=== PATIENT | male | born 1945 | race Caucasian/White ===

== ENCOUNTER 2020-06-26 13:03 | Observation (INO) ==
[2020-06-26] MEDS ORDERED: Piperacillin/Tazobactam 3.375 GM in Water for inj. (sterile) 20 ML IVP ONE (13:41)
[2020-06-26] MEDS ORDERED: MetroNIDAZOLE 500 MG/100 ML 500 MG/100 ML BAG IVPB ONE (13:41)
[2020-06-26] MEDS ORDERED: 0.9 % Sodium Chloride 500 ML IVC ONE (13:42)
[2020-06-26 13:52] LABS: Bilirubin,Urine Negative (Negative); Blood,Urine Negative (Negative); Clarity,Urine Clear (Clear); Color,Urine Light-Yellow (Yellow); Glucose,Urine (UA) Normal (Normal); Ketones,Urine Negative (Negative); Leukocyte Esterase,Urine Negative (Negative); Mucus,Urine Few per lpf (None-Few); Nitrite,Urine Negative (Negative); Protein,Urine 30 mg/dL (Neg-Trace); RBC,Urine 0-3 per hpf (0-3); Specific Gravity,Urine 1.019 (1.010-1.025); Squamous Epithelial Cell,Urine Few per hpf (None-Few); Urobilinogen,Urine Normal (Normal); WBC,Urine 0-3 per hpf (0-3)
[2020-06-26] MEDS ORDERED: Ondansetron 4 MG/2 ML VIAL IVP PRN (15:17)
[2020-06-26] MEDS ORDERED: Naloxone 0.4 MG/ML INJ IVP PRN (15:17)
[2020-06-26 16:15] LABS: Basophils # 0.1 K/mcL (0.0-0.2); Basophils % 0.8 %; Eosinophils # 0.1 K/mcL (0.0-0.6); Eosinophils % 1.3 %; Hematocrit 43.8 % (37.5-50.1); Hemoglobin 14.6 g/dL (12.9-16.9); Immature Granulocytes % 0.3 % (0-4); Lymphocytes # 1.2 K/mcL (0.6-4.6); Lymphocytes % 20.1 %; Mean Corpuscular HGB Conc 33.3 g/dL (31.6-35.5); Mean Corpuscular Hemoglobin 29.6 pg (28.0-33.3); Mean Corpuscular Volume 88.7 fL (83.0-100.0); Mean Platelet Volume 10.8 fL (9.4-12.4); Monocytes # 0.5 K/mcL (0.0-1.3); Neutrophils # 4.1 K/mcL (1.6-8.9); Platelet Count 153 K/mcL (140-400); Red Blood Count 4.94 M/mcL (4.19-5.50); Red Cell Distribution Width 13.5 % (11.5-14.5); Segmented Neutrophils % 68.5 %
[2020-06-26] MEDS: 0.9 % Sodium Chloride 1,000 ML IVC SCH (16:22)
[2020-06-26] MEDS: carvediloL 6.25 MG TABLET PO SCH (16:23)
[2020-06-26 16:28] LABS: Alanine Aminotransferase 17 Units/L (7-52); Albumin 4.7 g/dL (3.5-5.7); Albumin/Globulin Ratio 1.7 (1.1-2.2); Alkaline Phosphatase 112 Units/L (34-104); Aspartate Amino Transferase 18 Units/L (13-39); BUN/Creatinine Ratio 10 (6-26); Bilirubin,Total 0.8 mg/dL (0.3-1.0); Blood Urea Nitrogen 14 mg/dL (8-23); Calcium 9.5 mg/dL (8.6-10.3); Carbon Dioxide 22 mEq/L (23-29); Chloride 107 mEq/L (98-107); Globulin 2.8 g/dL (2.4-3.5); Glucose 102 mg/dL (70-105); Osmolality,Calculated 287 (280-300); Potassium 3.5 mEq/L (3.5-5.1); Sodium 138 mEq/L (136-145); Total Protein 7.5 g/dL (6.4-8.9); eGFR For African Americans > 60 (> 60); eGFR For Non-African Americans 52 (> 60)
[2020-06-26] MEDS: Piperacillin/Tazobactam 3.375 GM in 0.9 % Sodium Chloride Mini Bag 100 ML IVPB SCH (20:13)
[2020-06-27 02:29] LABS: Hematocrit 37.7 % (37.5-50.1); Mean Corpuscular HGB Conc 33.2 g/dL (31.6-35.5); Mean Corpuscular Hemoglobin 29.8 pg (28.0-33.3); Mean Platelet Volume 11.2 fL (9.4-12.4); Platelet Count 154 K/mcL (140-400); Red Blood Count 4.19 M/mcL (4.19-5.50); Red Cell Distribution Width 13.4 % (11.5-14.5); White Blood Count 6.2 K/mcL (4.3-11.1)
[2020-06-27 02:34] LABS: Hemoglobin 12.5 g/dL (12.9-16.9)
[2020-06-27 02:35] LABS: Albumin 3.9 g/dL (3.5-5.7); Albumin/Globulin Ratio 1.7 (1.1-2.2); Bilirubin,Total 0.5 mg/dL (0.3-1.0); Calcium 8.4 mg/dL (8.6-10.3); Globulin 2.3 g/dL (2.4-3.5); Potassium 3.4 mEq/L (3.5-5.1); Total Protein 6.2 g/dL (6.4-8.9)
[2020-06-27] MEDS: 0.9 % Sodium Chloride 1,000 ML IVC SCH (03:42)
[2020-06-27] MEDS: Piperacillin/Tazobactam 3.375 GM in 0.9 % Sodium Chloride Mini Bag 100 ML IVPB SCH (03:43)
[2020-06-27 07:12] VITALS: BP 152/70
[2020-06-27] MEDS: carvediloL 6.25 MG TABLET PO SCH (08:39)
[2020-06-27] MEDS ORDERED: Cholecalciferol (D-3) 1,000 UNIT (25MCG) TABLET PO SCH (09:00)
[2020-06-27] MEDS ORDERED: amLODIPine 5 MG TABLET PO SCH (09:00)
[2020-06-27] MEDS ORDERED: Thiamine (B-1) 100 MG TABLET PO SCH (09:00)
[2020-06-27] MEDS ORDERED: Magnesium Oxide 400 MG TABLET PO SCH (09:00)
[2020-06-27] MEDS ORDERED: Aspirin Enteric Coated 81 MG Tablet PO SCH (09:00)
== END 2020-06-27 10:50 | disposition home or self-care (01) ==
LOC: SUATTDRO → 3ANU 13:03 → EMEROOARM 13:03 → SUATTDRO 14:13 → 3ANU 15:05
PROVIDERS: ADMIT Family Medicine; ATTEND Student in an Organized Health Care Education/Training Program

== ENCOUNTER 2021-12-11 15:56 | Inpatient (IN) ==
[2021-12-11] MEDS ORDERED: Ipratropium/Albuterol Neb 3 ML IH ONE (16:06)
[2021-12-11] MEDS ORDERED: 0.9 % Sodium Chloride 1,000 ML IVC ONE (16:06)
[2021-12-11] MEDS ORDERED: Albuterol 2.5 MG/3 ML NEBULIZER IH ONE (16:06)
[2021-12-11 16:59] LABS: Basophils % 0.1 %; Immature Granulocytes % 0.4 % (0-4)
[2021-12-11 17:01] LABS: Hematocrit 39.9 % (37.5-50.1); Hemoglobin 13.4 g/dL (12.9-16.9); Immature Platelets 8.8 % (1.1-6.1); Lymphocytes # 0.6 K/mcL (0.6-4.6); Mean Corpuscular HGB Conc 33.6 g/dL (31.6-35.5); Mean Corpuscular Volume 89.5 fL (83.0-100.0); Mean Platelet Volume 11.9 fL (9.4-12.4); Monocytes # 0.4 K/mcL (0.0-1.3); Monocytes % 5.6 %; Neutrophils # 6.9 K/mcL (1.6-8.9); Platelet Count 121 K/mcL (140-400); Red Blood Count 4.46 M/mcL (4.19-5.50); Red Cell Distribution Width 13.9 % (11.5-14.5); Segmented Neutrophils % 86.9 %; White Blood Count 7.9 K/mcL (4.3-11.1)
[2021-12-11 17:08] LABS: Albumin 3.6 g/dL (3.5-5.7); Albumin/Globulin Ratio 1.4 (1.1-2.2); Bilirubin,Direct 0.1 mg/dL (0.0-0.2); Bilirubin,Indirect 0.4 mg/dL (0.0-1.0); Bilirubin,Total 0.5 mg/dL (0.3-1.0); Calcium 8.8 mg/dL (8.6-10.3); Globulin 2.5 g/dL (2.4-3.5); Potassium 3.9 mEq/L (3.5-5.1); Total Protein 6.1 g/dL (6.4-8.9); Troponin I 0.05 ng/mL (< 0.04)
[2021-12-11 17:17] LABS: VBG HCO3 23 mEq/L (21-27); VBG PCO2 34 mmHg (41-51); VBG PH 7.45 pH Units (7.32-7.42); VBG PO2 48 mmHg (25-50)
[2021-12-11] MEDS ORDERED: Naloxone 0.4 MG/ML INJ IVP PRN (17:55)
[2021-12-11] MEDS ORDERED: Mag Hydrox/Al Hydrox/Simeth 30 ML UDC PO PRN (17:55)
[2021-12-11] MEDS ORDERED: Ondansetron ODT 4 MG TAB.RAPDIS SL PRN (17:55)
[2021-12-11 18:22] LABS: Influenza A PCR Negative (Negative); Influenza B PCR Negative (Negative); Resp. Syncytial Virus PCR Negative (Negative)
[2021-12-11 18:28] LABS: SARS-CoV-2 by PCR (In House) Positive (Negative)
[2021-12-11] MEDS ORDERED: Remdesivir 200 MG in 0.9 % Sodium Chloride 100 ML IVPB ONE (20:00)
[2021-12-11] MEDS: Ipratropium 1 PUFF INHALER IH SCH ×2 (20:39→23:23)
[2021-12-11] MEDS: Furosemide 20 MG/2 ML VIAL IVP SCH (22:55)
[2021-12-11 22:58] LABS: Fibrinogen 435 mg/dL (169-393)
[2021-12-11 23:01] LABS: D-Dimer 626 ng/mLFEU (0-500)
[2021-12-12] MEDS: Ipratropium 1 PUFF INHALER IH SCH ×6 (03:31→23:27)
[2021-12-12] MEDS: *HR* Enoxaparin 40 MG/0.4 ML SYRINGE SQ SCH (05:24)
[2021-12-12 06:01] LABS: Basophils % 0.1 %; Hemoglobin 12.9 g/dL (12.9-16.9)
[2021-12-12 06:03] LABS: Hematocrit 37.8 % (37.5-50.1); Immature Granulocytes % 0.4 % (0-4); Immature Platelets 8.7 % (1.1-6.1); Lymphocytes # 0.4 K/mcL (0.6-4.6); Lymphocytes % 5.8 %; Mean Corpuscular HGB Conc 34.1 g/dL (31.6-35.5); Mean Corpuscular Hemoglobin 30.4 pg (28.0-33.3); Mean Corpuscular Volume 88.9 fL (83.0-100.0); Mean Platelet Volume 11.8 fL (9.4-12.4); Monocytes # 0.5 K/mcL (0.0-1.3); Monocytes % 6.3 %; Neutrophils # 6.2 K/mcL (1.6-8.9); Platelet Count 120 K/mcL (140-400); Red Blood Count 4.25 M/mcL (4.19-5.50); Red Cell Distribution Width 13.9 % (11.5-14.5); Segmented Neutrophils % 87.4 %; White Blood Count 7.1 K/mcL (4.3-11.1)
[2021-12-12 06:10] LABS: Fibrinogen 426 mg/dL (169-393)
[2021-12-12 06:12] LABS: D-Dimer 849 ng/mLFEU (0-500)
[2021-12-12 06:21] LABS: Albumin 3.2 g/dL (3.5-5.7); Albumin/Globulin Ratio 1.4 (1.1-2.2); Bilirubin,Direct 0.1 mg/dL (0.0-0.2); Bilirubin,Indirect 0.3 mg/dL (0.0-1.0); Bilirubin,Total 0.4 mg/dL (0.3-1.0); Calcium 8.1 mg/dL (8.6-10.3); Globulin 2.3 g/dL (2.4-3.5); Potassium 3.6 mEq/L (3.5-5.1); Total Protein 5.5 g/dL (6.4-8.9); Troponin I 0.03 ng/mL (< 0.04)
[2021-12-12] MEDS: Furosemide 20 MG/2 ML VIAL IVP SCH (09:38)
[2021-12-12] MEDS ORDERED: Perflutren Lipid Microsphere 1.3 ML in 0.9 % Sodium Chloride 8.7 ML IVP PRN (15:13)
[2021-12-12] MEDS: Remdesivir 100 MG in 0.9 % Sodium Chloride 100 ML IVPB SCH (22:02)
[2021-12-13] MEDS: Melatonin 3 MG TABLET PO PRN ×2 (00:40→20:35)
[2021-12-13] MEDS: Ipratropium 1 PUFF INHALER IH SCH ×5 (03:43→20:39)
[2021-12-13] MEDS: *HR* Enoxaparin 40 MG/0.4 ML SYRINGE SQ SCH (04:55)
[2021-12-13 04:58] LABS: Monocytes % 4.3 %
[2021-12-13 05:00] LABS: Basophils % 0.3 %; Hematocrit 37.9 % (37.5-50.1); Hemoglobin 12.7 g/dL (12.9-16.9); Immature Granulocytes % 0.6 % (0-4); Immature Platelets 8.9 % (1.1-6.1); Lymphocytes # 0.6 K/mcL (0.6-4.6); Lymphocytes % 7.5 %; Mean Corpuscular HGB Conc 33.5 g/dL (31.6-35.5); Mean Corpuscular Hemoglobin 30.5 pg (28.0-33.3); Mean Corpuscular Volume 90.9 fL (83.0-100.0); Mean Platelet Volume 11.6 fL (9.4-12.4); Monocytes # 0.3 K/mcL (0.0-1.3); Platelet Count 133 K/mcL (140-400); Red Blood Count 4.17 M/mcL (4.19-5.50); Segmented Neutrophils % 87.3 %
[2021-12-13 05:17] LABS: Albumin 3.2 g/dL (3.5-5.7); Albumin/Globulin Ratio 1.5 (1.1-2.2); Bilirubin,Direct 0.1 mg/dL (0.0-0.2); Bilirubin,Indirect 0.4 mg/dL (0.0-1.0); Bilirubin,Total 0.5 mg/dL (0.3-1.0); Calcium 7.7 mg/dL (8.6-10.3); Globulin 2.2 g/dL (2.4-3.5); Potassium 3.7 mEq/L (3.5-5.1); Total Protein 5.4 g/dL (6.4-8.9)
[2021-12-13] MEDS: Dexamethasone Sodium Phos/PF 10 MG/ML VIAL IVP SCH (08:54)
[2021-12-13] MEDS: Furosemide 20 MG/2 ML VIAL IVP SCH (08:54)
[2021-12-13] MEDS: Remdesivir 100 MG in 0.9 % Sodium Chloride 100 ML IVPB SCH (20:36)
[2021-12-14] MEDS: Ipratropium 1 PUFF INHALER IH SCH ×7 (00:09→23:52)
[2021-12-14 02:51] LABS: Basophils % 0.1 %; Hematocrit 37.4 % (37.5-50.1); Hemoglobin 12.7 g/dL (12.9-16.9); Immature Granulocytes % 0.8 % (0-4); Lymphocytes # 0.5 K/mcL (0.6-4.6); Lymphocytes % 4.4 %; Mean Corpuscular Hemoglobin 30.3 pg (28.0-33.3); Mean Corpuscular Volume 89.3 fL (83.0-100.0); Mean Platelet Volume 11.6 fL (9.4-12.4); Monocytes # 0.3 K/mcL (0.0-1.3); Monocytes % 3.1 %; Neutrophils # 10.1 K/mcL (1.6-8.9); Platelet Count 171 K/mcL (140-400); Red Blood Count 4.19 M/mcL (4.19-5.50); Red Cell Distribution Width 13.9 % (11.5-14.5); Segmented Neutrophils % 91.6 %
[2021-12-14 03:08] LABS: Fibrinogen 327 mg/dL (169-393)
[2021-12-14 03:10] LABS: D-Dimer 1463 ng/mLFEU (0-500)
[2021-12-14 03:24] LABS: Alanine Aminotransferase 32 Units/L (7-52); Albumin 3.1 g/dL (3.5-5.7); Albumin/Globulin Ratio 1.4 (1.1-2.2); Alkaline Phosphatase 69 Units/L (34-104); Aspartate Amino Transferase 36 Units/L (13-39); BUN/Creatinine Ratio 26 (6-26); Bilirubin,Direct 0.2 mg/dL (0.0-0.2); Bilirubin,Indirect 0.3 mg/dL (0.0-1.0); Bilirubin,Total 0.5 mg/dL (0.3-1.0); Blood Urea Nitrogen 35 mg/dL (8-23); C-Reactive Protein 50 mg/L (Less than 10); Calcium 7.6 mg/dL (8.6-10.3); Carbon Dioxide 22 mEq/L (23-29); Chloride 107 mEq/L (98-107); Globulin 2.2 g/dL (2.4-3.5); Glucose 152 mg/dL (70-105); Lactate Dehydrogenase 525 Units/L (140-271); Osmolality,Calculated 289 (280-300); Potassium 3.6 mEq/L (3.5-5.1); Sodium 134 mEq/L (136-145); Total Protein 5.3 g/dL (6.4-8.9); eGFR For African Americans > 60 (> 60); eGFR For Non-African Americans 52 (> 60)
[2021-12-14 03:32] LABS: Ferritin 754 ng/mL (20-250); Platelet Estimate Normal (Normal); Reactive Lymphocytes Present (Not Present)
[2021-12-14] MEDS: *HR* Enoxaparin 40 MG/0.4 ML SYRINGE SQ SCH (04:53)
[2021-12-14] MEDS: Magnesium Oxide 400 MG TABLET PO SCH (09:08)
[2021-12-14] MEDS: Furosemide 20 MG/2 ML VIAL IVP SCH (09:09)
[2021-12-14] MEDS: Cholecalciferol (D-3) 1,000 UNIT (25MCG) TABLET PO SCH (09:09)
[2021-12-14] MEDS: amLODIPine 5 MG TABLET PO SCH (09:09)
[2021-12-14] MEDS: Aspirin Enteric Coated 81 MG Tablet PO SCH (09:09)
[2021-12-14] MEDS: Dexamethasone Sodium Phos/PF 10 MG/ML VIAL IVP SCH (09:10)
[2021-12-14] MEDS: Remdesivir 100 MG in 0.9 % Sodium Chloride 100 ML IVPB SCH (19:43)
[2021-12-14] MEDS: Melatonin 3 MG TABLET PO PRN (20:45)
[2021-12-15 03:22] LABS: Albumin 3.1 g/dL (3.5-5.7); Albumin/Globulin Ratio 1.5 (1.1-2.2); Bilirubin,Direct 0.2 mg/dL (0.0-0.2); Bilirubin,Indirect 0.4 mg/dL (0.0-1.0); Bilirubin,Total 0.6 mg/dL (0.3-1.0); Globulin 2.1 g/dL (2.4-3.5); Total Protein 5.2 g/dL (6.4-8.9)
[2021-12-15] MEDS: Ipratropium 1 PUFF INHALER IH SCH ×6 (03:58→23:51)
[2021-12-15] MEDS: *HR* Enoxaparin 40 MG/0.4 ML SYRINGE SQ SCH (05:10)
[2021-12-15] MEDS: Aspirin Enteric Coated 81 MG Tablet PO SCH (07:40)
[2021-12-15] MEDS: amLODIPine 5 MG TABLET PO SCH (07:40)
[2021-12-15] MEDS: Cholecalciferol (D-3) 1,000 UNIT (25MCG) TABLET PO SCH (07:41)
[2021-12-15] MEDS: Magnesium Oxide 400 MG TABLET PO SCH (07:41)
[2021-12-15] MEDS: Dexamethasone Sodium Phos/PF 10 MG/ML VIAL IVP SCH (12:57)
[2021-12-15] MEDS: Furosemide 20 MG/2 ML VIAL IVP SCH (12:57)
[2021-12-15] MEDS ORDERED: *HR* LORazepam 0.5 MG TABLET PO ONE (20:16)
[2021-12-15] MEDS: Remdesivir 100 MG in 0.9 % Sodium Chloride 100 ML IVPB SCH (20:39)
[2021-12-15] MEDS: Melatonin 3 MG TABLET PO PRN (20:40)
[2021-12-16 02:17] LABS: BUN/Creatinine Ratio 27 (6-26); Blood Urea Nitrogen 36 mg/dL (8-23); Calcium 7.4 mg/dL (8.6-10.3); Carbon Dioxide 25 mEq/L (23-29); Chloride 107 mEq/L (98-107); Glucose 159 mg/dL (70-105); Magnesium 2.5 mg/dL (1.6-2.6); Osmolality,Calculated 296 (280-300); Phosphorous 3.7 mg/dL (2.7-4.5); Potassium 3.6 mEq/L (3.5-5.1); Sodium 137 mEq/L (136-145); eGFR For African Americans > 60 (> 60); eGFR For Non-African Americans 53 (> 60)
[2021-12-16 02:30] LABS: Albumin 3.1 g/dL (3.5-5.7); Albumin/Globulin Ratio 1.6 (1.1-2.2); Bilirubin,Direct 0.2 mg/dL (0.0-0.2); Bilirubin,Indirect 0.5 mg/dL (0.0-1.0); Bilirubin,Total 0.7 mg/dL (0.3-1.0); Globulin 1.9 g/dL (2.4-3.5)
[2021-12-16 03:00] LABS: Fibrinogen 206 mg/dL (169-393)
[2021-12-16 03:11] LABS: D-Dimer 1727 ng/mLFEU (0-500)
[2021-12-16] MEDS: Ipratropium 1 PUFF INHALER IH SCH ×6 (03:51→23:36)
[2021-12-16] MEDS: *HR* Enoxaparin 40 MG/0.4 ML SYRINGE SQ SCH (06:15)
[2021-12-16] MEDS: Dexamethasone Sodium Phos/PF 10 MG/ML VIAL IVP SCH (09:14)
[2021-12-16] MEDS: Cholecalciferol (D-3) 1,000 UNIT (25MCG) TABLET PO SCH (09:14)
[2021-12-16] MEDS: Magnesium Oxide 400 MG TABLET PO SCH (09:14)
[2021-12-16] MEDS: Aspirin Enteric Coated 81 MG Tablet PO SCH (09:14)
[2021-12-16] MEDS: amLODIPine 5 MG TABLET PO SCH (09:14)
[2021-12-16] MEDS: Furosemide 20 MG/2 ML VIAL IVP SCH (09:15)
[2021-12-16] MEDS: Melatonin 3 MG TABLET PO PRN (21:21)
[2021-12-16] MEDS: Saline Nasal Spray 44 ML BOTTLE NS PRN (23:51)
[2021-12-17] MEDS: Ipratropium 1 PUFF INHALER IH SCH ×6 (03:46→20:58)
[2021-12-17] MEDS: *HR* Enoxaparin 40 MG/0.4 ML SYRINGE SQ SCH (05:29)
[2021-12-17] MEDS: Saline Nasal Spray 44 ML BOTTLE NS PRN (05:30)
[2021-12-17 07:21] LABS: Basophils % 0.1 %; Hematocrit 37.6 % (37.5-50.1); Hemoglobin 12.8 g/dL (12.9-16.9); Immature Granulocytes % 0.7 % (0-4); Lymphocytes # 0.5 K/mcL (0.6-4.6); Lymphocytes % 6.4 %; Mean Corpuscular Hemoglobin 30.3 pg (28.0-33.3); Mean Corpuscular Volume 88.9 fL (83.0-100.0); Mean Platelet Volume 11.7 fL (9.4-12.4); Monocytes # 0.2 K/mcL (0.0-1.3); Monocytes % 2.5 %; Neutrophils # 6.9 K/mcL (1.6-8.9); Platelet Count 172 K/mcL (140-400); Red Blood Count 4.23 M/mcL (4.19-5.50); Red Cell Distribution Width 13.4 % (11.5-14.5); Segmented Neutrophils % 90.3 %; White Blood Count 7.6 K/mcL (4.3-11.1)
[2021-12-17 07:42] LABS: BUN/Creatinine Ratio 29 (6-26); Blood Urea Nitrogen 36 mg/dL (8-23); Calcium 7.5 mg/dL (8.6-10.3); Carbon Dioxide 26 mEq/L (23-29); Chloride 104 mEq/L (98-107); Glucose 120 mg/dL (70-105); Magnesium 2.6 mg/dL (1.6-2.6); Osmolality,Calculated 296 (280-300); Phosphorous 2.7 mg/dL (2.7-4.5); Potassium 3.4 mEq/L (3.5-5.1); Sodium 138 mEq/L (136-145); eGFR For African Americans > 60 (> 60); eGFR For Non-African Americans 57 (> 60)
[2021-12-17] MEDS: Aspirin Enteric Coated 81 MG Tablet PO SCH (08:17)
[2021-12-17] MEDS: Magnesium Oxide 400 MG TABLET PO SCH (08:18)
[2021-12-17] MEDS: Furosemide 20 MG/2 ML VIAL IVP SCH (08:18)
[2021-12-17] MEDS: Cholecalciferol (D-3) 1,000 UNIT (25MCG) TABLET PO SCH (08:19)
[2021-12-17] MEDS: amLODIPine 5 MG TABLET PO SCH (08:19)
[2021-12-17] MEDS: Dexamethasone Sodium Phos/PF 10 MG/ML VIAL IVP SCH (08:19)
[2021-12-17] MEDS: Melatonin 3 MG TABLET PO PRN (20:57)
[2021-12-18 01:26] LABS: BUN/Creatinine Ratio 32 (6-26); Blood Urea Nitrogen 40 mg/dL (8-23); Calcium 7.7 mg/dL (8.6-10.3); Carbon Dioxide 25 mEq/L (23-29); Chloride 103 mEq/L (98-107); Glucose 137 mg/dL (70-105); Magnesium 2.7 mg/dL (1.6-2.6); Osmolality,Calculated 298 (280-300); Potassium 4.1 mEq/L (3.5-5.1); Sodium 138 mEq/L (136-145); eGFR For African Americans > 60 (> 60); eGFR For Non-African Americans 56 (> 60)
[2021-12-18] MEDS: Ipratropium 1 PUFF INHALER IH SCH ×6 (03:52→23:29)
[2021-12-18] MEDS: *HR* Enoxaparin 40 MG/0.4 ML SYRINGE SQ SCH (06:14)
[2021-12-18] MEDS: Dexamethasone Sodium Phos/PF 10 MG/ML VIAL IVP SCH (08:53)
[2021-12-18] MEDS: Furosemide 20 MG/2 ML VIAL IVP SCH (08:53)
[2021-12-18] MEDS: Cholecalciferol (D-3) 1,000 UNIT (25MCG) TABLET PO SCH (08:53)
[2021-12-18] MEDS: Aspirin Enteric Coated 81 MG Tablet PO SCH (08:54)
[2021-12-18] MEDS: amLODIPine 5 MG TABLET PO SCH (08:54)
[2021-12-18] MEDS: Magnesium Oxide 400 MG TABLET PO SCH (08:54)
[2021-12-18] MEDS ORDERED: hydrOXYzine pamoate 25 MG CAPSULE PO PRN (12:27)
[2021-12-18] MEDS ORDERED: hydrOXYzine pamoate 25 MG CAPSULE PO ONE (12:38)
[2021-12-19] MEDS ORDERED: hydrOXYzine pamoate 25 MG CAPSULE PO ONE (00:07)
[2021-12-19 02:01] LABS: Fibrinogen 150 mg/dL (169-393)
[2021-12-19 02:02] LABS: BUN/Creatinine Ratio 37 (6-26); Blood Urea Nitrogen 44 mg/dL (8-23); Calcium 7.7 mg/dL (8.6-10.3); Carbon Dioxide 26 mEq/L (23-29); Chloride 105 mEq/L (98-107); Glucose 113 mg/dL (70-105); Lactate Dehydrogenase 542 Units/L (140-271); Magnesium 2.6 mg/dL (1.6-2.6); Osmolality,Calculated 296 (280-300); Phosphorous 2.8 mg/dL (2.7-4.5); Potassium 4.1 mEq/L (3.5-5.1); Sodium 137 mEq/L (136-145); eGFR For African Americans > 60 (> 60); eGFR For Non-African Americans 59 (> 60)
[2021-12-19 02:05] LABS: D-Dimer 5765 ng/mLFEU (0-500)
[2021-12-19 02:20] LABS: Ferritin 382 ng/mL (20-250)
[2021-12-19] MEDS: Ipratropium 1 PUFF INHALER IH SCH ×6 (03:45→23:34)
[2021-12-19] MEDS: *HR* Enoxaparin 40 MG/0.4 ML SYRINGE SQ SCH (05:30)
[2021-12-19] MEDS: Furosemide 20 MG/2 ML VIAL IVP SCH (07:51)
[2021-12-19] MEDS: Aspirin Enteric Coated 81 MG Tablet PO SCH (07:51)
[2021-12-19] MEDS: Cholecalciferol (D-3) 1,000 UNIT (25MCG) TABLET PO SCH (07:51)
[2021-12-19] MEDS: Dexamethasone Sodium Phos/PF 10 MG/ML VIAL IVP SCH (07:51)
[2021-12-19] MEDS: Magnesium Oxide 400 MG TABLET PO SCH (07:52)
[2021-12-19] MEDS: amLODIPine 5 MG TABLET PO SCH (07:52)
[2021-12-19] MEDS ORDERED: Isovue-370 500 ML BOTTLE IVP ONE (13:09)
[2021-12-19] MEDS: Melatonin 3 MG TABLET PO PRN (20:27)
[2021-12-19] MEDS: Saline Nasal Spray 44 ML BOTTLE NS PRN (20:28)
[2021-12-20] MEDS: Ipratropium 1 PUFF INHALER IH SCH ×6 (03:49→23:41)
[2021-12-20] MEDS: *HR* Enoxaparin 40 MG/0.4 ML SYRINGE SQ SCH (05:10)
[2021-12-20 05:59] LABS: Basophils % 0.1 %; Red Blood Count 4.52 M/mcL (4.19-5.50); Red Cell Distribution Width 13.5 % (11.5-14.5)
[2021-12-20 06:00] LABS: Eosinophils % 0.1 %; Hematocrit 40.9 % (37.5-50.1); Immature Granulocytes % 0.9 % (0-4); Immature Platelets 11.7 % (1.1-6.1); Lymphocytes # 0.5 K/mcL (0.6-4.6); Lymphocytes % 6.3 %; Mean Corpuscular HGB Conc 34.2 g/dL (31.6-35.5); Mean Corpuscular Volume 90.5 fL (83.0-100.0); Monocytes # 0.2 K/mcL (0.0-1.3); Monocytes % 3.1 %; Neutrophils # 6.6 K/mcL (1.6-8.9); Platelet Count 103 K/mcL (140-400); Segmented Neutrophils % 89.5 %; White Blood Count 7.4 K/mcL (4.3-11.1)
[2021-12-20 06:19] LABS: BUN/Creatinine Ratio 37 (6-26); Blood Urea Nitrogen 41 mg/dL (8-23); Calcium 7.7 mg/dL (8.6-10.3); Carbon Dioxide 23 mEq/L (23-29); Chloride 106 mEq/L (98-107); Glucose 103 mg/dL (70-105); Magnesium 2.7 mg/dL (1.6-2.6); Osmolality,Calculated 296 (280-300); Phosphorous 2.8 mg/dL (2.7-4.5); Potassium 4.7 mEq/L (3.5-5.1); Sodium 138 mEq/L (136-145); eGFR For African Americans > 60 (> 60); eGFR For Non-African Americans > 60 (> 60)
[2021-12-20] MEDS: Aspirin Enteric Coated 81 MG Tablet PO SCH (09:08)
[2021-12-20] MEDS: Magnesium Oxide 400 MG TABLET PO SCH (09:08)
[2021-12-20] MEDS: Cholecalciferol (D-3) 1,000 UNIT (25MCG) TABLET PO SCH (09:08)
[2021-12-20] MEDS: amLODIPine 5 MG TABLET PO SCH (09:08)
[2021-12-20] MEDS: Dexamethasone Sodium Phos/PF 10 MG/ML VIAL IVP SCH (09:09)
[2021-12-20] MEDS: Furosemide 20 MG/2 ML VIAL IVP SCH (09:09)
[2021-12-20] MEDS: Melatonin 3 MG TABLET PO PRN (21:40)
[2021-12-21] MEDS: Ipratropium 1 PUFF INHALER IH SCH ×5 (03:47→20:33)
[2021-12-21] MEDS: *HR* Enoxaparin 40 MG/0.4 ML SYRINGE SQ SCH (05:24)
[2021-12-21] MEDS: Furosemide 20 MG/2 ML VIAL IVP SCH (08:54)
[2021-12-21] MEDS: amLODIPine 5 MG TABLET PO SCH (08:54)
[2021-12-21] MEDS: Cholecalciferol (D-3) 1,000 UNIT (25MCG) TABLET PO SCH (08:54)
[2021-12-21] MEDS: Aspirin Enteric Coated 81 MG Tablet PO SCH (08:54)
[2021-12-21] MEDS: Magnesium Oxide 400 MG TABLET PO SCH (08:55)
[2021-12-21] MEDS: Dexamethasone Sodium Phos/PF 10 MG/ML VIAL IVP SCH (08:55)
[2021-12-21] MEDS: Dexmedetomidine HCl 400 MCG/100 ML MLS IVC SCH (11:12)
[2021-12-21] MEDS: GuaiFENesin/Codeine Oral Soln 5 ML UDC PO PRN (11:13)
[2021-12-21 14:48] LABS: Hemoglobin 13.5 g/dL (12.9-16.9); Mean Corpuscular Volume 91.6 fL (83.0-100.0); Red Cell Distribution Width 13.4 % (11.5-14.5); Segmented Neutrophils % 96.4 %
[2021-12-21 14:50] LABS: Basophils % 0.1 %; Hematocrit 40.5 % (37.5-50.1); Immature Granulocytes % 0.6 % (0-4); Immature Platelets 13.2 % (1.1-6.1); Lymphocytes # 0.2 K/mcL (0.6-4.6); Lymphocytes % 1.5 %; Mean Corpuscular HGB Conc 33.3 g/dL (31.6-35.5); Mean Corpuscular Hemoglobin 30.5 pg (28.0-33.3); Mean Platelet Volume 12.1 fL (9.4-12.4); Monocytes # 0.2 K/mcL (0.0-1.3); Monocytes % 1.4 %; Neutrophils # 11.8 K/mcL (1.6-8.9); Red Blood Count 4.42 M/mcL (4.19-5.50); White Blood Count 12.2 K/mcL (4.3-11.1)
[2021-12-21 15:08] LABS: BUN/Creatinine Ratio 32 (6-26); Blood Urea Nitrogen 41 mg/dL (8-23); Calcium 7.8 mg/dL (8.6-10.3); Carbon Dioxide 28 mEq/L (23-29); Chloride 102 mEq/L (98-107); Glucose 171 mg/dL (70-105); Magnesium 2.6 mg/dL (1.6-2.6); Osmolality,Calculated 296 (280-300); Phosphorous 3.7 mg/dL (2.7-4.5); Potassium 4.8 mEq/L (3.5-5.1); Sodium 136 mEq/L (136-145); eGFR For African Americans > 60 (> 60); eGFR For Non-African Americans 54 (> 60)
[2021-12-21 16:25] LABS: Platelet Count 95 K/mcL (140-400)
[2021-12-21 16:26] LABS: Large Platelets Present (Not Present); Toxic Granulation Present (Not Present)
[2021-12-22] MEDS: Ipratropium 1 PUFF INHALER IH SCH ×7 (00:09→23:30)
[2021-12-22] MEDS: *HR* Enoxaparin 40 MG/0.4 ML SYRINGE SQ SCH (05:01)
[2021-12-22] MEDS: Dexmedetomidine HCl 400 MCG/100 ML MLS IVC SCH ×2 (05:02→21:15)
[2021-12-22 07:59] LABS: Basophils % 0.1 %; Mean Platelet Volume 12.8 fL (9.4-12.4)
[2021-12-22 08:01] LABS: Eosinophils % 0.1 %; Hematocrit 40.5 % (37.5-50.1); Hemoglobin 13.6 g/dL (12.9-16.9); Immature Granulocytes % 0.5 % (0-4); Immature Platelets 13.9 % (1.1-6.1); Lymphocytes # 0.4 K/mcL (0.6-4.6); Lymphocytes % 4.2 %; Mean Corpuscular HGB Conc 33.6 g/dL (31.6-35.5); Mean Corpuscular Hemoglobin 30.5 pg (28.0-33.3); Mean Corpuscular Volume 90.8 fL (83.0-100.0); Monocytes # 0.2 K/mcL (0.0-1.3); Monocytes % 2.7 %; Neutrophils # 8.2 K/mcL (1.6-8.9); Red Blood Count 4.46 M/mcL (4.19-5.50); Red Cell Distribution Width 13.3 % (11.5-14.5); Segmented Neutrophils % 92.4 %; White Blood Count 8.9 K/mcL (4.3-11.1)
[2021-12-22 08:06] LABS: Platelet Count 83 K/mcL (140-400)
[2021-12-22 08:12] LABS: BUN/Creatinine Ratio 40 (6-26); Blood Urea Nitrogen 43 mg/dL (8-23); Calcium 7.7 mg/dL (8.6-10.3); Carbon Dioxide 27 mEq/L (23-29); Chloride 104 mEq/L (98-107); Glucose 101 mg/dL (70-105); Osmolality,Calculated 297 (280-300); Potassium 4.6 mEq/L (3.5-5.1); Sodium 138 mEq/L (136-145); eGFR For African Americans > 60 (> 60); eGFR For Non-African Americans > 60 (> 60)
[2021-12-22] MEDS: Dexamethasone Sodium Phos/PF 10 MG/ML VIAL IVP SCH (09:06)
[2021-12-22] MEDS: amLODIPine 5 MG TABLET PO SCH (09:06)
[2021-12-22] MEDS: Cholecalciferol (D-3) 1,000 UNIT (25MCG) TABLET PO SCH (09:06)
[2021-12-22] MEDS: Aspirin Enteric Coated 81 MG Tablet PO SCH (09:06)
[2021-12-22] MEDS: Furosemide 20 MG/2 ML VIAL IVP SCH (09:06)
[2021-12-22] MEDS: Magnesium Oxide 400 MG TABLET PO SCH (09:06)
[2021-12-22] MEDS: GuaiFENesin/Codeine Oral Soln 5 ML UDC PO PRN (21:14)
[2021-12-23 01:51] LABS: Basophils % 0.1 %; Hemoglobin 13.6 g/dL (12.9-16.9); Immature Granulocytes % 0.6 % (0-4); Lymphocytes # 0.4 K/mcL (0.6-4.6); Lymphocytes % 3.3 %; Mean Corpuscular Hemoglobin 30.5 pg (28.0-33.3); Mean Corpuscular Volume 89.7 fL (83.0-100.0); Mean Platelet Volume 12.5 fL (9.4-12.4); Monocytes # 0.4 K/mcL (0.0-1.3); Monocytes % 3.3 %; Red Blood Count 4.46 M/mcL (4.19-5.50); Red Cell Distribution Width 13.2 % (11.5-14.5); Segmented Neutrophils % 92.7 %; White Blood Count 10.7 K/mcL (4.3-11.1)
[2021-12-23 01:52] LABS: Neutrophils # 9.9 K/mcL (1.6-8.9); Platelet Count 83 K/mcL (140-400)
[2021-12-23 02:12] LABS: BUN/Creatinine Ratio 43 (6-26); Blood Urea Nitrogen 45 mg/dL (8-23); Calcium 7.6 mg/dL (8.6-10.3); Carbon Dioxide 24 mEq/L (23-29); Chloride 104 mEq/L (98-107); Glucose 110 mg/dL (70-105); Osmolality,Calculated 292 (280-300); Potassium 4.9 mEq/L (3.5-5.1); Sodium 135 mEq/L (136-145); eGFR For African Americans > 60 (> 60); eGFR For Non-African Americans > 60 (> 60)
[2021-12-23] MEDS: Ipratropium 1 PUFF INHALER IH SCH ×6 (04:30→23:46)
[2021-12-23] MEDS: *HR* Enoxaparin 40 MG/0.4 ML SYRINGE SQ SCH (05:47)
[2021-12-23] MEDS: Aspirin Enteric Coated 81 MG Tablet PO SCH (11:05)
[2021-12-23] MEDS: Furosemide 20 MG/2 ML VIAL IVP SCH (11:06)
[2021-12-23] MEDS: Cholecalciferol (D-3) 1,000 UNIT (25MCG) TABLET PO SCH (11:06)
[2021-12-23] MEDS: amLODIPine 5 MG TABLET PO SCH (11:06)
[2021-12-23] MEDS: Magnesium Oxide 400 MG TABLET PO SCH (11:06)
[2021-12-23] MEDS: Dexamethasone Sodium Phos/PF 10 MG/ML VIAL IVP SCH (11:07)
[2021-12-23] MEDS ORDERED: Morphine Sulfate Oral CONC 10 MG/0.5 ML ORAL.SYG SL PRN (12:22)
[2021-12-23] MEDS: hydrOXYzine pamoate 25 MG CAPSULE PO PRN (22:03)
[2021-12-24] MEDS: Ipratropium 1 PUFF INHALER IH SCH ×7 (03:51→23:51)
[2021-12-24] MEDS: *HR* Enoxaparin 40 MG/0.4 ML SYRINGE SQ SCH (06:08)
[2021-12-24 06:22] LABS: Hemoglobin 14.7 g/dL (12.9-16.9); Lymphocytes % 3.3 %
[2021-12-24 06:24] LABS: Basophils % 0.2 %; Hematocrit 43.4 % (37.5-50.1); Immature Granulocytes % 0.4 % (0-4); Immature Platelets 12.7 % (1.1-6.1); Lymphocytes # 0.4 K/mcL (0.6-4.6); Mean Corpuscular HGB Conc 33.9 g/dL (31.6-35.5); Mean Corpuscular Hemoglobin 30.2 pg (28.0-33.3); Mean Corpuscular Volume 89.1 fL (83.0-100.0); Mean Platelet Volume 12.1 fL (9.4-12.4); Monocytes # 0.4 K/mcL (0.0-1.3); Monocytes % 3.6 %; Neutrophils # 11.2 K/mcL (1.6-8.9); Red Blood Count 4.87 M/mcL (4.19-5.50); Red Cell Distribution Width 13.5 % (11.5-14.5); Segmented Neutrophils % 92.5 %; White Blood Count 12.1 K/mcL (4.3-11.1)
[2021-12-24 06:25] LABS: Platelet Count 81 K/mcL (140-400)
[2021-12-24 06:36] LABS: BUN/Creatinine Ratio 38 (6-26); Blood Urea Nitrogen 45 mg/dL (8-23); Calcium 7.8 mg/dL (8.6-10.3); Carbon Dioxide 28 mEq/L (23-29); Chloride 101 mEq/L (98-107); Glucose 99 mg/dL (70-105); Osmolality,Calculated 296 (280-300); Potassium 4.7 mEq/L (3.5-5.1); Sodium 137 mEq/L (136-145); eGFR For African Americans > 60 (> 60); eGFR For Non-African Americans > 60 (> 60)
[2021-12-24] MEDS: Aspirin Enteric Coated 81 MG Tablet PO SCH (08:47)
[2021-12-24] MEDS: Cholecalciferol (D-3) 1,000 UNIT (25MCG) TABLET PO SCH (08:47)
[2021-12-24] MEDS: amLODIPine 5 MG TABLET PO SCH (08:47)
[2021-12-24] MEDS: Magnesium Oxide 400 MG TABLET PO SCH (08:48)
[2021-12-24] MEDS: Furosemide 20 MG/2 ML VIAL IVP SCH (08:48)
[2021-12-24] MEDS ORDERED: Morphine Sulfate 2 MG/ML SYRINGE IVP ONE (09:58)
[2021-12-24] MEDS: Dexamethasone Sodium Phos/PF 10 MG/ML VIAL IVP SCH (14:17)
[2021-12-24] MEDS: Morphine Sulfate Oral CONC 10 MG/0.5 ML ORAL.SYG SL PRN ×2 (14:24→17:19)
[2021-12-24] MEDS: Dexmedetomidine HCl 400 MCG/100 ML MLS IVC SCH (17:20)
[2021-12-24] MEDS: hydrOXYzine pamoate 25 MG CAPSULE PO PRN (19:48)
[2021-12-25] MEDS: Ipratropium 1 PUFF INHALER IH SCH ×6 (03:47→23:29)
[2021-12-25 06:32] LABS: Basophils % 0.2 %; Immature Granulocytes % 0.4 % (0-4); Red Cell Distribution Width 13.9 % (11.5-14.5); Segmented Neutrophils % 93.9 %
[2021-12-25 06:34] LABS: Hematocrit 46.4 % (37.5-50.1); Immature Platelets 12.7 % (1.1-6.1); Lymphocytes # 0.4 K/mcL (0.6-4.6); Lymphocytes % 3.1 %; Mean Corpuscular HGB Conc 34.5 g/dL (31.6-35.5); Mean Corpuscular Volume 89.9 fL (83.0-100.0); Mean Platelet Volume 12.1 fL (9.4-12.4); Monocytes # 0.3 K/mcL (0.0-1.3); Monocytes % 2.4 %; Neutrophils # 11.7 K/mcL (1.6-8.9); Red Blood Count 5.16 M/mcL (4.19-5.50); White Blood Count 12.5 K/mcL (4.3-11.1)
[2021-12-25 06:35] LABS: Platelet Count 74 K/mcL (140-400)
[2021-12-25 06:45] LABS: Potassium 4.9 mEq/L (3.5-5.1)
[2021-12-25] MEDS: *HR* Enoxaparin 40 MG/0.4 ML SYRINGE SQ SCH (07:47)
[2021-12-25] MEDS: Cholecalciferol (D-3) 1,000 UNIT (25MCG) TABLET PO SCH (09:49)
[2021-12-25] MEDS: Aspirin Enteric Coated 81 MG Tablet PO SCH (09:49)
[2021-12-25] MEDS: amLODIPine 5 MG TABLET PO SCH (09:49)
[2021-12-25] MEDS: Magnesium Oxide 400 MG TABLET PO SCH (09:49)
[2021-12-25] MEDS: Dexamethasone Sodium Phos/PF 10 MG/ML VIAL IVP SCH (09:50)
[2021-12-25] MEDS ORDERED: Morphine Sulfate 2 MG/ML SYRINGE IVP ONE (10:27)
[2021-12-25] MEDS: Morphine Sulfate Oral CONC 10 MG/0.5 ML ORAL.SYG SL PRN (19:02)
[2021-12-25] MEDS: Dexmedetomidine HCl 400 MCG/100 ML MLS IVC SCH (21:05)
[2021-12-25] MEDS: Melatonin 3 MG TABLET PO PRN (23:36)
[2021-12-26] MEDS: Morphine Sulfate Oral CONC 10 MG/0.5 ML ORAL.SYG SL PRN (00:38)
[2021-12-26] MEDS: Ipratropium 1 PUFF INHALER IH SCH ×6 (03:50→23:41)
[2021-12-26] MEDS: *HR* Enoxaparin 40 MG/0.4 ML SYRINGE SQ SCH (06:12)
[2021-12-26] MEDS: Aspirin Enteric Coated 81 MG Tablet PO SCH (08:42)
[2021-12-26] MEDS: Cholecalciferol (D-3) 1,000 UNIT (25MCG) TABLET PO SCH (08:42)
[2021-12-26] MEDS: amLODIPine 5 MG TABLET PO SCH (08:42)
[2021-12-26] MEDS: Magnesium Oxide 400 MG TABLET PO SCH (08:42)
[2021-12-26] MEDS: Dexamethasone Sodium Phos/PF 10 MG/ML VIAL IVP SCH (08:43)
[2021-12-26 13:31] LABS: Basophils % 0.2 %
[2021-12-26 13:33] LABS: Eosinophils % 0.1 %; Hemoglobin 14.9 g/dL (12.9-16.9); Immature Granulocytes % 0.7 % (0-4); Immature Platelets 11.4 % (1.1-6.1); Lymphocytes % 1.3 %; Mean Corpuscular HGB Conc 34.7 g/dL (31.6-35.5); Mean Corpuscular Hemoglobin 31.7 pg (28.0-33.3); Mean Corpuscular Volume 91.5 fL (83.0-100.0); Mean Platelet Volume 11.8 fL (9.4-12.4); Monocytes # 0.2 K/mcL (0.0-1.3); Monocytes % 1.2 %; Red Cell Distribution Width 13.6 % (11.5-14.5); Segmented Neutrophils % 96.5 %; White Blood Count 18.6 K/mcL (4.3-11.1)
[2021-12-26 13:35] LABS: Lymphocytes # 0.2 K/mcL (0.6-4.6); Platelet Count 68 K/mcL (140-400)
[2021-12-26 14:26] LABS: BUN/Creatinine Ratio 48 (6-26); Blood Urea Nitrogen 62 mg/dL (8-23); Calcium 7.7 mg/dL (8.6-10.3); Carbon Dioxide 23 mEq/L (23-29); Chloride 103 mEq/L (98-107); Glucose 118 mg/dL (70-105); Osmolality,Calculated 299 (280-300); Sodium 135 mEq/L (136-145); eGFR For African Americans > 60 (> 60); eGFR For Non-African Americans 54 (> 60)
[2021-12-26] MEDS: Dexmedetomidine HCl 400 MCG/100 ML MLS IVC SCH (17:34)
[2021-12-26] MEDS ORDERED: Melatonin 3 MG TABLET PO PRN (23:42)
[2021-12-27 01:34] LABS: Basophils % 0.1 %; Monocytes % 2.6 %
[2021-12-27 01:35] LABS: Hematocrit 40.2 % (37.5-50.1); Hemoglobin 13.6 g/dL (12.9-16.9); Immature Granulocytes % 0.6 % (0-4); Immature Platelets 9.6 % (1.1-6.1); Lymphocytes # 0.3 K/mcL (0.6-4.6); Lymphocytes % 2.7 %; Mean Corpuscular HGB Conc 33.8 g/dL (31.6-35.5); Mean Corpuscular Hemoglobin 30.6 pg (28.0-33.3); Mean Corpuscular Volume 90.5 fL (83.0-100.0); Mean Platelet Volume 12.4 fL (9.4-12.4); Monocytes # 0.3 K/mcL (0.0-1.3); Red Blood Count 4.44 M/mcL (4.19-5.50); Red Cell Distribution Width 13.7 % (11.5-14.5); White Blood Count 12.2 K/mcL (4.3-11.1)
[2021-12-27 01:42] LABS: Neutrophils # 11.5 K/mcL (1.6-8.9); Platelet Count 59 K/mcL (140-400)
[2021-12-27 01:51] LABS: BUN/Creatinine Ratio 50 (6-26); Blood Urea Nitrogen 65 mg/dL (8-23); Calcium 7.3 mg/dL (8.6-10.3); Carbon Dioxide 21 mEq/L (23-29); Chloride 105 mEq/L (98-107); Glucose 123 mg/dL (70-105); Osmolality,Calculated 300 (280-300); Potassium 5.1 mEq/L (3.5-5.1); Sodium 135 mEq/L (136-145); eGFR For African Americans > 60 (> 60); eGFR For Non-African Americans 54 (> 60)
[2021-12-27] MEDS: Ipratropium 1 PUFF INHALER IH SCH ×5 (04:20→20:21)
[2021-12-27] MEDS: *HR* Enoxaparin 40 MG/0.4 ML SYRINGE SQ SCH (06:05)
[2021-12-27] MEDS: Dexmedetomidine HCl 400 MCG/100 ML MLS IVC SCH ×2 (08:36→21:21)
[2021-12-27] MEDS: Dexamethasone Sodium Phos/PF 10 MG/ML VIAL IVP SCH (08:36)
[2021-12-27] MEDS: Aspirin Enteric Coated 81 MG Tablet PO SCH (08:37)
[2021-12-27] MEDS: Cholecalciferol (D-3) 1,000 UNIT (25MCG) TABLET PO SCH (08:37)
[2021-12-27] MEDS: amLODIPine 5 MG TABLET PO SCH (08:37)
[2021-12-27] MEDS: Magnesium Oxide 400 MG TABLET PO SCH (08:38)
[2021-12-28] MEDS: Ipratropium 1 PUFF INHALER IH SCH ×6 (00:06→21:10)
[2021-12-28 02:14] LABS: Basophils % 0.1 %; Hemoglobin 13.1 g/dL (12.9-16.9)
[2021-12-28 02:15] LABS: Hematocrit 39.8 % (37.5-50.1); Immature Granulocytes % 0.6 % (0-4); Immature Platelets 12.9 % (1.1-6.1); Lymphocytes # 0.4 K/mcL (0.6-4.6); Lymphocytes % 3.3 %; Mean Corpuscular HGB Conc 32.9 g/dL (31.6-35.5); Mean Corpuscular Hemoglobin 30.3 pg (28.0-33.3); Mean Corpuscular Volume 91.9 fL (83.0-100.0); Mean Platelet Volume 13.1 fL (9.4-12.4); Monocytes # 0.3 K/mcL (0.0-1.3); Monocytes % 2.9 %; Red Blood Count 4.33 M/mcL (4.19-5.50); Red Cell Distribution Width 13.6 % (11.5-14.5); Segmented Neutrophils % 93.1 %; White Blood Count 10.9 K/mcL (4.3-11.1)
[2021-12-28 02:18] LABS: Neutrophils # 10.2 K/mcL (1.6-8.9); Platelet Count 58 K/mcL (140-400)
[2021-12-28 02:32] LABS: BUN/Creatinine Ratio 51 (6-26); Blood Urea Nitrogen 64 mg/dL (8-23); Calcium 7.4 mg/dL (8.6-10.3); Carbon Dioxide 23 mEq/L (23-29); Chloride 105 mEq/L (98-107); Glucose 116 mg/dL (70-105); Osmolality,Calculated 303 (280-300); Potassium 5.5 mEq/L (3.5-5.1); Sodium 137 mEq/L (136-145); eGFR For African Americans > 60 (> 60); eGFR For Non-African Americans 56 (> 60)
[2021-12-28] MEDS: *HR* Enoxaparin 40 MG/0.4 ML SYRINGE SQ SCH (06:03)
[2021-12-28] MEDS: Morphine Sulfate Oral CONC 10 MG/0.5 ML ORAL.SYG SL PRN ×4 (08:20→22:55)
[2021-12-28] MEDS: Furosemide 20 MG/2 ML VIAL IVP SCH (08:24)
[2021-12-28] MEDS: amLODIPine 5 MG TABLET PO SCH (08:24)
[2021-12-28] MEDS: Aspirin Enteric Coated 81 MG Tablet PO SCH (08:24)
[2021-12-28] MEDS: Magnesium Oxide 400 MG TABLET PO SCH (08:24)
[2021-12-28] MEDS: Cholecalciferol (D-3) 1,000 UNIT (25MCG) TABLET PO SCH (08:24)
[2021-12-28] MEDS: Dexmedetomidine HCl 400 MCG/100 ML MLS IVC SCH (10:43)
[2021-12-28] MEDS ORDERED: *HR* Metoprolol 5 MG/5 ML VIAL IVP ONE (11:22)
[2021-12-28] MEDS ORDERED: Amiodarone Premix 360 MG/200 ML BAG IVC ONE ×2 (11:53→14:11)
[2021-12-28] MEDS ORDERED: Lidocaine -MPF 1% 5 ML AMPUL INFILT ONE (12:45)
[2021-12-28] MEDS: *HR* LORazepam 2 MG/ML VIAL IVP PRN ×2 (17:30→23:06)
[2021-12-28] MEDS: Amiodarone Premix 360 MG/200 ML BAG IVC SCH (17:31)
[2021-12-29] MEDS: Ipratropium 1 PUFF INHALER IH SCH ×7 (00:43→23:35)
[2021-12-29] MEDS: Amiodarone Premix 360 MG/200 ML BAG IVC SCH ×2 (05:28→16:27)
[2021-12-29 06:02] LABS: Basophils % 0.1 %; Eosinophils % 0.1 %; Red Cell Distribution Width 13.9 % (11.5-14.5)
[2021-12-29 06:04] LABS: Hematocrit 43.8 % (37.5-50.1); Hemoglobin 14.5 g/dL (12.9-16.9); Immature Granulocytes % 0.6 % (0-4); Immature Platelets 12.8 % (1.1-6.1); Lymphocytes # 0.6 K/mcL (0.6-4.6); Lymphocytes % 3.4 %; Mean Corpuscular HGB Conc 33.1 g/dL (31.6-35.5); Mean Corpuscular Hemoglobin 30.5 pg (28.0-33.3); Mean Platelet Volume 13.3 fL (9.4-12.4); Monocytes # 0.4 K/mcL (0.0-1.3); Monocytes % 2.6 %; Neutrophils # 15.2 K/mcL (1.6-8.9); Red Blood Count 4.76 M/mcL (4.19-5.50); Segmented Neutrophils % 93.2 %; White Blood Count 16.3 K/mcL (4.3-11.1)
[2021-12-29 06:06] LABS: Platelet Count 60 K/mcL (140-400)
[2021-12-29] MEDS: *HR* Enoxaparin 40 MG/0.4 ML SYRINGE SQ SCH (06:08)
[2021-12-29 06:58] LABS: BUN/Creatinine Ratio 50 (6-26); Blood Urea Nitrogen 66 mg/dL (8-23); Calcium 7.5 mg/dL (8.6-10.3); Carbon Dioxide 22 mEq/L (23-29); Chloride 103 mEq/L (98-107); Glucose 216 mg/dL (70-105); Osmolality,Calculated 302 (280-300); Potassium 4.6 mEq/L (3.5-5.1); Sodium 133 mEq/L (136-145); eGFR For African Americans > 60 (> 60); eGFR For Non-African Americans 53 (> 60)
[2021-12-29] MEDS: Magnesium Oxide 400 MG TABLET PO SCH (07:38)
[2021-12-29] MEDS: Aspirin Enteric Coated 81 MG Tablet PO SCH (07:38)
[2021-12-29] MEDS: amLODIPine 5 MG TABLET PO SCH (07:39)
[2021-12-29] MEDS: Cholecalciferol (D-3) 1,000 UNIT (25MCG) TABLET PO SCH (07:40)
[2021-12-29] MEDS: Furosemide 20 MG/2 ML VIAL IVP SCH (08:43)
[2021-12-29] MEDS: Morphine Sulfate Oral CONC 10 MG/0.5 ML ORAL.SYG SL PRN ×2 (14:14→20:06)
[2021-12-29] MEDS: *HR* LORazepam 2 MG/ML VIAL IVP PRN (16:28)
[2021-12-29] MEDS: Melatonin 3 MG TABLET PO SCH (20:11)
[2021-12-29] MEDS: QUEtiapine Fumarate 25 MG TABLET PO SCH (20:11)
[2021-12-30] MEDS: Morphine Sulfate Oral CONC 10 MG/0.5 ML ORAL.SYG SL PRN ×4 (02:36→20:35)
[2021-12-30 03:57] LABS: Lymphocytes % 1.7 %
[2021-12-30 03:59] LABS: Basophils % 0.1 %; Hemoglobin 14.8 g/dL (12.9-16.9); Immature Granulocytes % 0.5 % (0-4); Immature Platelets 12.2 % (1.1-6.1); Lymphocytes # 0.3 K/mcL (0.6-4.6); Mean Corpuscular HGB Conc 32.9 g/dL (31.6-35.5); Mean Corpuscular Hemoglobin 30.5 pg (28.0-33.3); Mean Corpuscular Volume 92.8 fL (83.0-100.0); Mean Platelet Volume 12.4 fL (9.4-12.4); Monocytes # 0.7 K/mcL (0.0-1.3); Monocytes % 3.6 %; Neutrophils # 17.1 K/mcL (1.6-8.9); Nucleated Red Blood Cells 0.1 /100 WBC (0); Red Blood Count 4.85 M/mcL (4.19-5.50); Red Cell Distribution Width 14.3 % (11.5-14.5); Segmented Neutrophils % 94.1 %; White Blood Count 18.2 K/mcL (4.3-11.1)
[2021-12-30 04:04] LABS: Calcium 7.5 mg/dL (8.6-10.3); Potassium 5.4 mEq/L (3.5-5.1)
[2021-12-30 04:11] LABS: Platelet Count 61 K/mcL (140-400)
[2021-12-30] MEDS: Ipratropium 1 PUFF INHALER IH SCH ×6 (04:13→23:29)
[2021-12-30] MEDS: *HR* Enoxaparin 40 MG/0.4 ML SYRINGE SQ SCH (05:27)
[2021-12-30 08:29] LABS: Magnesium 3.5 mg/dL (1.6-2.6); Phosphorous 5.6 mg/dL (2.7-4.5)
[2021-12-30] MEDS ORDERED: D10% in Water 500 ML IVC PRN ×2 (09:29→09:31)
[2021-12-30] MEDS: Amiodarone Premix 360 MG/200 ML BAG IVC SCH ×2 (09:42→21:03)
[2021-12-30] MEDS: Magnesium Oxide 400 MG TABLET PO SCH (09:43)
[2021-12-30] MEDS: amLODIPine 5 MG TABLET PO SCH (09:43)
[2021-12-30] MEDS: Cholecalciferol (D-3) 1,000 UNIT (25MCG) TABLET PO SCH (09:43)
[2021-12-30] MEDS: Aspirin Enteric Coated 81 MG Tablet PO SCH (09:43)
[2021-12-30] MEDS ORDERED: Clinimix 5%-20% SOLUTION 2,000 ML with MVI, adult with vitamin K 10 ML, Sodium Acetat... IVC SCH (17:00)
[2021-12-30] MEDS ORDERED: Fat Emulsion 250 ML IVPB SCH (17:00)
[2021-12-30] MEDS ORDERED: Dextrose Gel 15 GM/37.5 ML TUBE PO PRN ×2 (17:01)
[2021-12-30] MEDS ORDERED: D5% in Water 1,000 ML IVC PRN (17:01)
[2021-12-30] MEDS ORDERED: *HR* Dextrose 50 % in Water (Syg) 50 ML SYRINGE IVP PRN (17:01)
[2021-12-30 17:24] LABS: Calcium 7.4 mg/dL (8.6-10.3)
[2021-12-30] MEDS ORDERED: traZODone 50 MG TABLET PO PRN (19:46)
[2021-12-30] MEDS: Insulin LISPRO 300 UNITS/3 ML VIAL SUBQ SCH ×2 (20:32→23:41)
[2021-12-30] MEDS: QUEtiapine Fumarate 25 MG TABLET PO SCH (20:34)
[2021-12-30] MEDS: Melatonin 3 MG TABLET PO SCH (20:34)
[2021-12-31] MEDS: Morphine Sulfate Oral CONC 10 MG/0.5 ML ORAL.SYG SL PRN ×3 (00:52→20:35)
[2021-12-31 04:03] LABS: Basophils % 0.1 %; Hematocrit 40.9 % (37.5-50.1); Immature Granulocytes % 0.4 % (0-4); Mean Corpuscular HGB Conc 34.2 g/dL (31.6-35.5); Mean Corpuscular Hemoglobin 31.5 pg (28.0-33.3); Red Cell Distribution Width 14.5 % (11.5-14.5); Segmented Neutrophils % 93.7 %
[2021-12-31 04:05] LABS: Immature Platelets 13.2 % (1.1-6.1); Lymphocytes # 0.2 K/mcL (0.6-4.6); Lymphocytes % 1.8 %; Mean Corpuscular Volume 92.1 fL (83.0-100.0); Mean Platelet Volume 12.5 fL (9.4-12.4); Monocytes # 0.5 K/mcL (0.0-1.3); Neutrophils # 11.8 K/mcL (1.6-8.9); Red Blood Count 4.44 M/mcL (4.19-5.50); White Blood Count 12.6 K/mcL (4.3-11.1)
[2021-12-31 04:09] LABS: Platelet Count 63 K/mcL (140-400)
[2021-12-31 04:22] LABS: Albumin 3.1 g/dL (3.5-5.7); Albumin/Globulin Ratio 1.3 (1.1-2.2); Bilirubin,Total 0.7 mg/dL (0.3-1.0); Calcium 7.5 mg/dL (8.6-10.3); Globulin 2.3 g/dL (2.4-3.5); Magnesium 3.5 mg/dL (1.6-2.6); Phosphorous 3.7 mg/dL (2.7-4.5); Total Protein 5.4 g/dL (6.4-8.9)
[2021-12-31] MEDS: Ipratropium 1 PUFF INHALER IH SCH ×6 (04:35→23:54)
[2021-12-31] MEDS: Insulin LISPRO 300 UNITS/3 ML VIAL SUBQ SCH ×5 (04:55→20:36)
[2021-12-31] MEDS: *HR* Enoxaparin 30 MG/0.3 ML SYRINGE SQ SCH (05:09)
[2021-12-31] MEDS: amLODIPine 5 MG TABLET PO SCH (07:59)
[2021-12-31] MEDS: Magnesium Oxide 400 MG TABLET PO SCH (07:59)
[2021-12-31] MEDS: Aspirin Enteric Coated 81 MG Tablet PO SCH (07:59)
[2021-12-31] MEDS: Cholecalciferol (D-3) 1,000 UNIT (25MCG) TABLET PO SCH (08:00)
[2021-12-31] MEDS: Amiodarone Premix 360 MG/200 ML BAG IVC SCH ×2 (08:13→20:35)
[2021-12-31] MEDS ORDERED: Clinimix 5%-20% SOLUTION 2,000 ML with MVI, adult with vitamin K 10 ML, Sodium Acetat... IVC SCH (17:00)
[2021-12-31] MEDS: QUEtiapine Fumarate 25 MG TABLET PO SCH (19:53)
[2021-12-31] MEDS: Melatonin 3 MG TABLET PO SCH (19:54)
[2022-01-01] MEDS: Insulin LISPRO 300 UNITS/3 ML VIAL SUBQ SCH ×6 (01:36→20:28)
[2022-01-01] MEDS: Ipratropium 1 PUFF INHALER IH SCH ×7 (03:36→23:50)
[2022-01-01] MEDS: Morphine Sulfate Oral CONC 10 MG/0.5 ML ORAL.SYG SL PRN ×3 (05:39→11:16)
[2022-01-01] MEDS: *HR* Enoxaparin 30 MG/0.3 ML SYRINGE SQ SCH (05:39)
[2022-01-01 06:48] VITALS: BP 148/67; PULSE 92; TEMP 97.5
[2022-01-01 08:23] LABS: Basophils % 0.1 %; Immature Granulocytes % 0.4 % (0-4); Mean Corpuscular Volume 92.5 fL (83.0-100.0); Monocytes % 2.8 %
[2022-01-01 08:25] LABS: Hematocrit 43.3 % (37.5-50.1); Hemoglobin 14.3 g/dL (12.9-16.9); Lymphocytes # 0.2 K/mcL (0.6-4.6); Lymphocytes % 2.4 %; Mean Corpuscular Hemoglobin 30.6 pg (28.0-33.3); Mean Platelet Volume 13.7 fL (9.4-12.4); Monocytes # 0.2 K/mcL (0.0-1.3); Neutrophils # 7.1 K/mcL (1.6-8.9); Red Blood Count 4.68 M/mcL (4.19-5.50); Red Cell Distribution Width 14.9 % (11.5-14.5); Segmented Neutrophils % 94.3 %; White Blood Count 7.5 K/mcL (4.3-11.1)
[2022-01-01 08:27] LABS: Platelet Count 61 K/mcL (140-400); Platelet Estimate Decreased (Normal)
[2022-01-01] MEDS: Amiodarone Premix 360 MG/200 ML BAG IVC SCH (08:29)
[2022-01-01 08:38] LABS: Alanine Aminotransferase 48 Units/L (7-52); Albumin 3.2 g/dL (3.5-5.7); Albumin/Globulin Ratio 1.5 (1.1-2.2); Alkaline Phosphatase 111 Units/L (34-104); Aspartate Amino Transferase 25 Units/L (13-39); BUN/Creatinine Ratio 52 (6-26); Blood Urea Nitrogen 71 mg/dL (8-23); Calcium 7.8 mg/dL (8.6-10.3); Carbon Dioxide 27 mEq/L (23-29); Chloride 109 mEq/L (98-107); Globulin 2.1 g/dL (2.4-3.5); Glucose 172 mg/dL (70-105); Magnesium 3.3 mg/dL (1.6-2.6); Osmolality,Calculated 319 (280-300); Potassium 3.7 mEq/L (3.5-5.1); Sodium 142 mEq/L (136-145); Total Protein 5.3 g/dL (6.4-8.9); eGFR For African Americans > 60 (> 60); eGFR For Non-African Americans 51 (> 60)
[2022-01-01] MEDS: Cholecalciferol (D-3) 1,000 UNIT (25MCG) TABLET PO SCH (09:23)
[2022-01-01] MEDS: amLODIPine 5 MG TABLET PO SCH (09:23)
[2022-01-01] MEDS: Aspirin Enteric Coated 81 MG Tablet PO SCH (09:23)
[2022-01-01] MEDS: Magnesium Oxide 400 MG TABLET PO SCH (09:23)
[2022-01-01] MEDS: *HR* LORazepam 2 MG/ML VIAL IVP PRN (10:29)
[2022-01-01] MEDS ORDERED: *HR* LORazepam 2 MG/ML VIAL IVP PRN (11:17)
[2022-01-01] MEDS: Morphine Sulfate 2 MG/ML SYRINGE IVP SCH ×2 (13:11→18:21)
[2022-01-01] MEDS ORDERED: Clinimix 5%-20% SOLUTION 2,000 ML with MVI, adult with vitamin K 10 ML, Sodium Acetat... IVC SCH (17:00)
[2022-01-01] MEDS ORDERED: Morphine Sulfate 2 MG/ML SYRINGE IVP PRN (18:26)
[2022-01-01] MEDS: QUEtiapine Fumarate 25 MG TABLET PO SCH (20:29)
[2022-01-01] MEDS: Melatonin 3 MG TABLET PO SCH (20:29)
[2022-01-01 23:52] VITALS: O2SAT 70
[2022-01-02] MEDS: Insulin LISPRO 300 UNITS/3 ML VIAL SUBQ SCH (01:53)
== END 2022-01-02 03:49 | disposition expired | DRG 177 ==
LOC: EMEROOARM 15:56 → 3NENU 15:56 → SUATTDRO 18:43 → 3NENU 19:00 → 2NNU 12-25 13:38
PROVIDERS: ADMIT Student in an Organized Health Care Education/Training Program; ATTEND Internal Medicine